=== PATIENT | female | born 1985 | race Two or more races ===

== ENCOUNTER 2016-09-12 21:06 | Emergency (ER) | payer MEDICAID ==
[2016-09-12 21:23] VITALS: BP 116/87; PULSE 80; RESP 16; O2SAT 97
--- NOTE | 2016-09-12 21:52 | UCPHY ---
H & P Patient Type: Established Chief Complaint Nursing Narrative: laceration to left ring finger. Time Seen by Provider: 09/12/16 21:24 HPI/ROS: Chief complaint: Finger laceration HPI: 31-year-old female was at home preparing dinner when she cut her left ring finger with a knife. Patient sustained a laceration over the middle phalanx of her left finger. She is up-to-date on her tetanus. ROS: 10 point Review of Systems is negative except as noted in the HPI. Physical exam: General: Awake, alert, no acute distress Left hand: No wrist injury, no hand injury. She has a 1 cm laceration over the ulnar aspect of her middle phalanx of her ring finger. It does not cross the joint line. She has full flexion extension strength. On expiration does not go deeper than the dermis. Sensations intact medial laterally. Cap refills less than 2 seconds Skin: No rash - Medical/Surgical History Other PMH: none - Family History Significant Family History: No pertinent family hx - Social History Smoking Status: Never smoked Constitutional: Initial Vital Signs Temperature (C) 36.8 C 09/12/16 21:21 Heart Rate 80 09/12/16 21:21 Respiratory Rate 16 09/12/16 21:21 Blood Pressure 116/87 H 09/12/16 21:21 O2 Sat (%) 97 09/12/16 21:21 O2 Delivery Mode Room Air Allergies/Adverse Reactions: No Known Allergies Allergy (Unverified 04/02/15 19:47) Medical Decision Making Procedures: Procedure: Regional anesthesia. A digital nerve block was performed for finger laceration. The block was performed with Marcaine. The patient experienced complete anesthesia. The procedure was performed by myself. Procedure: Laceration repair. Verbal consent was obtained from the patient. The 1 cm laceration on the left ring finger was anesthetized with a digital nerve block. The wound was irrigated, draped and explored to its base with a gloved finger. There were no deep structures involved. No tendon injury was identified. The wound was repaired with 3, 5-0 Ethilon simple interrupted sutures. The wound repair was uncomplicated. The procedure was performed by myself. Departure - Departure Disposition: Home, Routine, Self-Care Clinical Impression: Finger laceration Condition: Good Instructions: Finger Laceration (ED) Additional Instructions: Sutures need to be removed in 7 days. Keep the wound clean and dry. Return to the emergency depart for increasing redness, opening of the wound, pus from the wound, fevers, chills, or any other concerns. Referrals: GUI SNOWDEN,. [Primary Care Provider] - As per Instructions - PQRS PQRS Measurement: NA
[2016-09-19 17:54] VITALS: TEMP 98.1
== END 2016-09-12 22:05 | disposition home or self-care (01) ==
LOC: CED 21:06
PROC: 0HQGXZZ Repair Left Hand Skin, External Approach (ICD-10-PCS; principal; 2016-09-12)
DX: S61.215A Laceration without foreign body of left ring finger without damage to nail, initial encounter (principal); W26.0XXA Contact with knife, initial encounter; Y92.010 Kitchen of single-family (private) house as the place of occurrence of the external cause; Y93.G1 Activity, food preparation and clean up; Y99.8 Other external cause status
CPT/HCPCS: G0463-PO

== ENCOUNTER 2017-02-23 21:16 | Emergency (ER) | payer MEDICAID, OTHER ==
[2017-02-23 21:30] VITALS: RESP 16; TEMP 98.2
--- NOTE | 2017-02-23 21:35 | EDPHY ---
H & P Smoking Status: Never smoked Time Seen by Provider: 02/23/17 21:33 HPI/ROS: Chief complaint. Abdominal pain HPI. Patient is a 31-year-old female 3 para 1, miscarriage x1 who is 13 weeks 4 days with right lower quadrant pain. Her abdominal pain began at 4:00 p.m. and has been somewhat waxing and waning. It was gone for approximately 2 hours and then has returned. His seems to be worse with lying on the right side and better with lying on her back. She has been having some vaginal spotting over the past 3 weeks but has not had any abdominal pain until this evening. She did have a follow-up ultrasound yesterday to assess viability in the spotting in the ultrasound was normal. She has nausea vomiting throughout her with occasional blood and was prescribed anti nausea medication yesterday which she has not filled yet. She denies urinary symptoms or fever. She has had a previous but still has her appendix. No vaginal bleeding or spotting today ROS Constitutional. no fever/chills, no weakness Eyes. no problems with vision ENT. no sore throat, no nasal drainage Cardiovascular. no chest pain Respiratory. no shortness of breath, no cough Abdominal. Right lower quadrant abdominal pain with and nausea vomiting through her . Vaginal spotting for the past 3 weeks . no problems urinating MS. no calf pain/swelling, no neck/back pain, no joint pain Skin. no rash Lymph. no swollen glands Neuro. no headache, no dizziness, no difficulty walking or with speech (Morgan Chan) Past Medical/Surgical History: Vitiligo (Morgan Chan) Social History: , nonsmoker, no alcohol (Morgan Chan) Physical Exam: General Appearance: Alert pleasant well-developed female mild distress. Vital signs are stable Eyes: Pupils equal and round no pallor or injection. ENT, Mouth: Mucous membranes are moist. Respiratory: There are no retractions, lungs are clear to auscultation. Cardiovascular: Regular rate and rhythm. Gastrointestinal: Abdomen is soft with gravid abdomen in uterus appropriate size for dates. Tenderness in the right lower quadrant and adnexal area. Normal bowel sounds Neurological: Awake and alert, sensory and motor exams grossly normal. Skin: Warm and dry, no rashes. Musculoskeletal: Neck is supple nontender. Extremities symmetrical, full range of motion. Psychiatric: Patient is oriented X 3, there is no agitation. (Morgan Chan) Constitutional: Initial Vital Signs Temperature (C) 36.8 C 02/23/17 21:26 Heart Rate 87 02/23/17 21:26 Respiratory Rate 16 02/23/17 21:26 Blood Pressure 130/74 H 02/23/17 21:26 O2 Sat (%) 97 02/23/17 21:26 O2 Delivery Mode Room Air Allergies/Adverse Reactions: No Known Allergies Allergy (Verified 02/23/17 21:30) Home Medications: Medication Instructions Recorded Nausea Meds 02/23/17 Medical Decision Making - Diagnostics Imaging Results: Imaging Impressions Abdomen Ultrasound 02/23/17 21:55 Impression: 1. Normal sonographic appearance of the appendix. Obstetrics Ultrasound 02/23/17 21:55 Impression: 1. Viable intrauterine gestation at 13 weeks 3 days. Small amniotic band in the fundus with minimal subchorionic fluid. No evidence of placenta previa or abruption. Procedures: IV normal saline (Morgan Chan) ED Course/Re-evaluation: Care assumed at 2300 hours, change of shift. Case reviewed with Dr. Chan. Chart reviewed. Patient interviewed. Agree with Dr. Chan as findings with the addition unclear occasions as follows Clinical course: at 13 weeks gestation followed by [facility]. Patient was asymptomatic through the earlier part of the day. Onset of this mild right lower quadrant discomfort ever since 4:00 p.m.. However it would be at times with this would completely go away in particular when she lies on her left side. It was mild in nature. It was not associated with any dysuria frequency or pyuria. She has had no fevers or chills. She has had continued appetite and in fact as a going to discuss with her the findings and recheck her myself she is busy eating some crackers. She does note that she had some mild nausea earlier in the day in the morning but that is been a problem with each of her pregnancies throughout the entire 9 months as well as this one ongoing. The degree and extent of her nausea was no different than what she is experiencing throughout this course of as well as previous ones. This would be her 4th ultrasound through the course of this : Nine weeks-initial assessment of the course of Eleven weeks-presented with some mild bleeding The 13 weeks, yesterday-the staff at the OBGYN appointment were unable to find heartbeat thus an ultrasound was performed at the [facility]. This report is unavailable to us. There is no mention to her at that time of an ovarian cyst. Clinical exam: Abdomen: Soft, nondistended. Mild tenderness to deep palpation right lower quadrant without mass. No rebound or guarding Ultrasound results phoned to me and discussed with the radiologist corporate communications specialist. Report reviewed. Appendix is normal. Viable intrauterine . Mild subchorionic fluid of a small amount. heart rate 170. Findings reviewed with the patient as well as the expected course of her feeling no worse over the weekend and to return if she has accelerating symptoms or continued pain. Follow-up on Sunday. Laboratory studies: Normal white count Anemia UA: Mild amount of bacteruria in the setting of a non clean catch 4+ epithelial cells. No signs of infection Impression: As per the discharge plan (Farrukh Rowland) Differential Diagnosis: Differential diagnosis includes, but is not limited to: Gastroenteritis, renal colic, kidney stones, ureterolithiasis, cholecystitis, appendicitis, mesenteric adenitis, abdominal pain in , round ligament strain. (Farrukh Rowland) - Data Points Laboratory Results: Laboratory Results 02/23/17 21:59 02/23/17 21:59 02/23/17 02/23/17 02/23/17 23:00 21:59 21:59 WBC 10.66 10^3/uL H 10^3/uL (3.80-9.50) RBC 5.16 10^6/uL 10^6/uL (4.18-5.33) Hgb 12.2 g/dL L g/dL (12.6-16.3) Hct 37.4 % L % (38.0-47.0) MCV 72.5 fL L fL (81.5-99.8) MCH 23.6 pg L pg (27.9-34.1) MCHC 32.6 g/dL g/dL (32.4-36.7) RDW 21.6 % H % (11.5-15.2) Plt Count 301 10^3/uL 10^3/uL (150-400) MPV 9.9 fL fL (8.7-11.7) Neut % (Auto) 66.5 % % (39.3-74.2) Lymph % (Auto) 26.0 % % (15.0-45.0) [place] % (Auto) 6.3 % % (4.5-13.0) Eos % (Auto) 0.7 % % (0.6-7.6) Baso % (Auto) 0.2 % L % (0.3-1.7) Nucleat RBC Rel Count 0.0 % % (0.0-0.2) Absolute Neuts (auto) 7.10 10^3/uL H 10^3/uL (1.70-6.50) Absolute Lymphs (auto) 2.77 10^3/uL 10^3/uL (1.00-3.00) Absolute Monos (auto) 0.67 10^3/uL 10^3/uL (0.30-0.80) Absolute Eos (auto) 0.07 10^3/uL 10^3/uL (0.03-0.40) Absolute Basos (auto) 0.02 10^3/uL 10^3/uL (0.02-0.10) Absolute Nucleated RBC 0.00 10^3/uL 10^3/uL (0-0.01) Immature Gran % 0.3 % % (0.0-1.1) Immature Gran # 0.03 10^3/uL 10^3/uL (0.00-0.10) Platelet Estimate ADEQUATE (ADEQ) Microcytic Cells 1+ H Sodium 135 mEq/L mEq/L (134-144) Potassium 4.1 mEq/L mEq/L (3.5-5.2) Chloride 102 mEq/L mEq/L (97-110) Carbon Dioxide 21 mEq/l L mEq/l (22-31) Anion Gap 12 mEq/L mEq/L (8-16) BUN 7 mg/dL mg/dL (7-23) Creatinine 0.4 mg/dL L mg/dL (0.6-1.0) Estimated GFR > 60 Glucose 82 mg/dL mg/dL (70-100) Calcium 9.1 mg/dL mg/dL (8.5-10.4) Urine Color YELLOW Urine Appearance CLEAR Urine pH 6.5 (5.0-7.5) Ur Specific [place] <= 1.005 (1.002-1.030) Urine Protein NEGATIVE (NEGATIVE) Urine Ketones NEGATIVE (NEGATIVE) Urine Blood TRACE H (NEGATIVE) Urine Nitrate NEGATIVE (NEGATIVE) Urine Bilirubin NEGATIVE (NEGATIVE) Urine Urobilinogen 0.2 EU EU (0.2-1.0) Ur Leukocyte Esterase NEGATIVE (NEGATIVE) Urine RBC 1-3 /hpf /hpf (0-3) Urine WBC NONE SEEN /hpf /hpf (0-3) Ur Epithelial Cells 4+ /lpf H /lpf (NONE-1+) Urine Bacteria 1+ /hpf H /hpf (NONE SEEN) Urine Glucose NEGATIVE (NEGATIVE) Medications Given: Discontinued Medications Sodium Chloride (Ns) 1,000 mls @ 0 mls/hr IV EDNOW ONE; Wide Open PRN Reason: Protocol Stop: 02/23/17 21:55 Last Admin: 02/23/17 22:04 Dose: 1,000 mls Ondansetron HCl (Zofran) 4 mg IVP EDNOW ONE Stop: 02/23/17 21:55 Last Admin: 02/23/17 23:49 Dose: Not Given Departure - Departure Disposition: Home, Routine, Self-Care Clinical Impression: Right lower quadrant abdominal pain of unknown etiology Qualifiers: Weeks of gestation: 13 weeks Qualified Code(s): Z3A.13 - 13 weeks gestation of Condition: Good Instructions: Abdominal Pain in (ED) Additional Instructions: No change in her diet Pelvic rest equals no intercourse until rechecked next week If the pain persists to have follow-up on Sunday. If the pain is getting worse or steady by morning you need to come back for recheck on Sunday Referrals: GUI SNOWDEN,. [Primary Care Provider] - As per Instructions
[2017-02-23] MEDS ORDERED: ONDANSETRON 4 MG/2 ML VIAL IVP ONE (21:54)
[2017-02-23] MEDS ORDERED: NS 1,000 ML IV ONE (21:54)
[2017-02-23 22:03] LABS: % IMMATURE GRANULYOCYTES 0.3 % (0.0-1.1); ABSOLUTE IMMATURE GRANULOCYTES 0.03 10^3/uL (0.00-0.10); ADD DIFF? NO; ADD MORPH? YES; ADD SCAN? NO; ATYPICAL LYMPHOCYTE FLAG 0 (0-99); FRAGMENT RBC FLAG 20 (0-99); HEMATOCRIT 37.4 % (38.0-47.0); HEMOGLOBIN 12.2 g/dL (12.6-16.3); LEFT SHIFT FLG 0 (0-99); LIPEMIA HEMOLYSIS FLAG 80 (0-99); MEAN CELL HEMOGLOBIN 23.6 pg (27.9-34.1); MEAN CELL HEMOGLOBIN CONCENTR. 32.6 g/dL (32.4-36.7); MEAN CELL VOLUME 72.5 fL (81.5-99.8); MEAN PLATELET VOLUME 9.9 fL (8.7-11.7); PLATELET CLUMPS FLAG 0 (0-99); PLATELET COUNT 301 10^3/uL (150-400); RED BLOOD CELL COUNT 5.16 10^6/uL (4.18-5.33)
[2017-02-23 22:08] LABS: RED CELL DISTRIBUTION WIDTH 21.6 % (11.5-15.2)
[2017-02-23 22:18] LABS: ANION GAP 12 mEq/L (8-16); CALCIUM 9.1 mg/dL (8.5-10.4); CARBON DIOXIDE 21 mEq/l (22-31); CHLORIDE 102 mEq/L (97-110); CREATININE 0.4 mg/dL (0.6-1.0); GLOMERULAR FILTRATION RATE > 60; GLUCOSE 82 mg/dL (70-100); POTASSIUM 4.1 mEq/L (3.5-5.2); SODIUM 135 mEq/L (134-144)
[2017-02-23 22:32] LABS: MICROCYTES 1+; PLATELET ESTIMATE ADEQUATE (ADEQ)
[2017-02-23 23:19] LABS: COLOR YELLOW; LEUKOCYTE ESTERASE,URINE NEGATIVE (NEGATIVE); NITRITE,URINE NEGATIVE (NEGATIVE); PH,URINE 6.5 (5.0-7.5)
[2017-02-23 23:35] LABS: BACTERIA 1+ /hpf (NONE SEEN); WBC,URINE NONE SEEN /hpf (0-3)
[2017-02-24 00:14] VITALS: BP 121/85; PULSE 98; O2SAT 98
== END 2017-02-24 00:05 | disposition home or self-care (01) ==
LOC: CED 21:16
DX: O26.891 Other specified pregnancy related conditions, first trimester (principal); R10.31 Right lower quadrant pain; E86.9 Volume depletion, unspecified; Z3A.13 13 weeks gestation of pregnancy
CPT/HCPCS: 76705-PO; 80048-PO; 81003-PO; 81015-PO; 85025-PO; J2405